=== PATIENT | male | born 2000 | race Caucasian/White ===

== ENCOUNTER 2024-07-13 01:21 | Emergency (ER) | payer OTHER ==
--- NOTE | 2024-07-13 02:25 | ED ---
Upper Extremity HPI - General Chief Complaint: Extremity Injury, Upper Stated Complaint: [facility]- Finger injury Time Seen by Provider: 07/13/24 01:32 Source: patient, RN notes reviewed Mode of arrival: ambulatory Limitations: no limitations - History of Present Illness Initial Comments: This is a 24-year-old male who presents to the emergency department for a right finger injury. Patient was at work and something got stuck in a machine. He went to reach for it and it sucked up his glove and caused his finger to spin around. He has since had pain and swelling to the right index finger with limited range of motion. MD Complaint: Injury to:: right, finger - Related Data Previous Rx's Medication Instructions Recorded Ibuprofen [Motrin] 800 mg PO Q8H PRN #30 tab 07/13/24 Allergies Allergy/AdvReac Type Severity Reaction Status Date / Time No Known Allergies Allergy Verified 07/13/24 01:25 Review of Systems ROS Statement: Those systems with pertinent positive or pertinent negative responses have been documented in the HPI. ROS Other: All systems not noted in ROS Statement are negative. Past Medical History Past Medical History: No Reported History History of Any Multi-Drug Resistant Organisms: None Reported Past Surgical History: No Surgical Hx Reported Past Psychological History: No Psychological Hx Reported Smoking Status: Current every day smoker Past Alcohol Use History: Occasional Past Drug Use History: None Reported General Exam Limitations: no limitations General appearance: alert, in no apparent distress Head exam: Present: atraumatic, normocephalic, normal inspection Respiratory exam: Present: normal lung sounds bilaterally, respiratory distress Cardiovascular Exam: Present: regular rate, normal rhythm, normal heart sounds. Absent: systolic murmur, diastolic murmur, rubs, gallop, clicks Extremities exam: Present: other (Swelling, ecchymosis, and tenderness to the right index finger. Range of motion limited by pain and swelling) Neurological exam: Present: alert, oriented X3, CN II-XII intact Psychiatric exam: Present: normal affect, normal mood Course Vital Signs 07/13/24 07/13/24 01:25 03:41 Temperature 98.0 F 98.1 F Pulse Rate 66 74 Respiratory 17 18 Rate Blood Pressure 152/103 152/87 O2 Sat by Pulse 99 98 Oximetry Medical Decision Making - Medical Decision Making This is a 24-year-old male who presents to the emergency department for a right finger injury. Was pt. sent in by a medical professional or institution? @ -No Did you speak to anyone other than the patient for history? @ -No Did you review nursing and triage notes? @ -Yes, and I agree, it is accurate with regards to the patient's symptoms. Were old charts reviewed? @ -No Differential Diagnosis? @ -Differential Musculoskeletal Muscular strain, contusion, ligament sprain, fracture, arthritis, septic arthritis, bursitis, cellulitis, muscle spasm, nerve compression, DVT, arterial occlusion, herpes zoster, electrolyte abnormality, tumor.... This is not meant to be in all inclusive list EKG interpreted by me (3pts min.)? @ -Not obtained X-rays interpreted by me (1pt min.)? @ -X-ray of the right index finger obtained. My interpretation identifies a middle phalanx fracture. CT interpreted by me (1pt min.)? @ -Not obtained U/S interpreted by me (1pt. min.)? @ -Not obtained What testing was considered but not performed? (CT, X-rays, U/S, labs)? Why? @ -None What meds were considered but not given? Why? @ -None Did you discuss the management of the patient with other professionals? @ -No Did you reconcile home meds? @ -No Was smoking cessation discussed for >3mins.? @ -No Was critical care preformed (if so, how long)? @ -No Were there social determinants of health that impacted care today? How? (Homelessness, low income, unemployed, alcoholism, drug addiction, transportation, low edu. Level, literacy, decrease access to med. care, fpc, rehab)? @ -No Was there de-escalation of care discussed even if they declined? (Discuss DNR or withdrawal of care, Hospice)? @ -No What co-morbidities impacted this encounter? (DM, HTN, Smoking, COPD, CAD, Cancer, CVA, Hep., AIDS, mental health diagnosis, sleep apnea, morbid obesity)? @ -None Was patient admitted / discharged? @ -Discharged. X-ray of the right index finger obtained revealing an oblique fracture of the distal portion of the middle phalanx second digit with 2 mm rad ial subluxation of the distal fracture fragment. There is also a nondisplaced acute fracture of the distal tuft of the distal phalanx. Findings reviewed with the patient. His finger was put in a splint. Ibuprofen prescribed. We also discussed ice and elevation. Information for follow-up with orthopedic hand was provided. He is advised to contact them first thing in the morning for a follow-up appointment. Patient discharged home in stable condition. Case discussed with ED attending Dr. Islas. Return precautions reviewed in depth, the patient is instructed to return to the emergency department with any new, worsening, or concerning symptoms. Patient verbalized understanding. Undiagnosed new problem with uncertain prognosis? @ -None Drug Therapy requiring intensive monitoring for toxicity (Heparin, Nitro, Insulin, Cardizem)? @ -None Were any procedures done? @ -None Diagnosis/symptom? @ -Right index finger fracture Acute, or Chronic, or Acute on Chronic? @ -Acute Uncomplicated (without systemic symptoms) or Complicated (systemic symptoms)? @ -Uncomplicated Side effects of treatment? @ -None Exacerbation, Progression, or Severe Exacerbation] @ -Not applicable Poses a threat to life or bodily function? @ -May limit his use of the right hand for the meantime - Radiology Data Radiology results: report reviewed, image reviewed Disposition Clinical Impression: Fracture of phalanx of right index finger Disposition: HOME SELF-CARE Instructions (If sedation given, give patient instructions): Finger Fracture (ED) Additional Instructions: Return to the emergency department with any new, worsening, or concerning symptoms. Alternate with ibuprofen and Tylenol as needed for pain relief. Contact orthopedics listed below first thing in the morning. Let them know that you were seen in the emergency department found to have a fracture of your index finger. They will schedule you for a follow-up appointment. Prescriptions: Ibuprofen [Motrin] 800 mg PO Q8H PRN #30 tab PRN Reason: Pain Is patient prescribed a controlled substance at d/c from ED?: No Referrals: None,Stated [Primary Care Provider] - 1-2 days Scott Dover MD [STAFF PHYSICIAN] - 1-2 days Time of Disposition: 03:27
[2024-07-13] MEDS: IBUPROFEN 800 MG TAB PO STA (02:42)
[2024-07-13] MEDS: ACETAMINOPHEN TAB 500 MG TAB PO STA (02:43)
[2024-07-13] MEDS: ACET/COD 300 MG/30 MG STARTER PACK 6 TAB BTL PO STA (03:35)
--- NOTE | 2024-07-13 03:39 | XR ---
EXAM: XR Right Fingers, 2 or More Views CLINICAL HISTORY: XR Reason: Index finger injury TECHNIQUE: Frontal, lateral and oblique views of the fingers of the right hand. COMPARISON: No relevant prior studies available. FINDINGS: Bones/joints: Oblique fracture of the distal portion of the middle phalanx, second digit with 2 mm radial subluxation of the distal fracture fragment. Nondisplaced acute fracture of the distal tuft of the distal phalanx, second digit. Soft tissues: Soft tissue swelling over the second digit. No foreign body is seen. IMPRESSION: 1. Oblique fracture of the distal portion of the middle phalanx, second digit with 2 mm radial subluxation of the distal fracture fragment. 2. Nondisplaced acute fracture of the distal tuft of the distal phalanx, second digit.
[2024-07-13 03:44] VITALS: BP 152/87; PULSE 74; RESP 18; TEMP 98.1
== END 2024-07-13 03:41 | disposition home or self-care (01) ==
LOC: EC 01:21
DX: S62.600A Fracture of unspecified phalanx of right index finger, initial encounter for closed fracture (principal); F17.200 Nicotine dependence, unspecified, uncomplicated; W23.0XXA Caught, crushed, jammed, or pinched between moving objects, initial encounter; Y99.0 Civilian activity done for income or pay
CPT/HCPCS: 99283